=== PATIENT | male | born 1940 | race Caucasian/White ===

== ENCOUNTER 2016-08-10 12:00 | Emergency (ER) | payer MEDICARE, OTHER ==
[2016-08-10 12:19] VITALS: BP 124/58; PULSE 59; O2SAT 95
[2016-08-10] MEDS ORDERED: Adacel Vial IM ONE ×2 (12:51→12:52)
[2016-08-10] MEDS ORDERED: BACIGUENT PACKET TP ONE (12:51)
[2016-08-10] MEDS ORDERED: XYLOCAINE 1% HCL 20 ML MDV IJ ONE (12:51)
[2016-08-10] MEDS ORDERED: BACIGUENT PACKET ONE (12:53)
[2016-08-10] MEDS ORDERED: XYLOCAINE 1% HCL 20 ML MDV ONE (12:54)
--- NOTE | 2016-08-10 12:57 | ERPHSYRPT ---
- History of Present Illness Time Seen by Provider: 08/10/16 12:45 Source: patient Exam Limitations: no limitations Patient Subjective Stated Complaint: pt states he lacerated right 4th digit while cutting caulk. Triage Nursing Assessment: pt pink, warm, dry. unapproximated laceration to right 4th digit. bleeding controlled. radial pulse strong. Occurred: just prior to arrival Method of Injury: incised Quality: constant Severity of Pain-Max: mild Severity of Pain-Current: mild Extremities Pain Location: 4th finger: right Modifying Factors: Improves With: movement Associated Symptoms: none Allergies/Adverse Reactions: Penicillins Allergy (Verified 08/10/16 12:20) Home Medications: Glipizide 5 mg PO DAILY 08/10/16 [History] Lisinopril 5 mg [Zestril 5 MG] 5 mg PO DAILY 08/10/16 [History] Metformin HCl 500 mg [Glucophage 500 MG] 500 mg PO DAILY 08/10/16 [History ] Hx Tetanus, Diphtheria Vaccination/Date Given: Yes (up to date) Hx Influenza Vaccination/Date Given: No Hx Pneumococcal Vaccination/Date Given: No Immunizations Up to Date: Yes - Review of Systems Eyes: No Symptoms Ears, Nose, & Throat: No Symptoms Respiratory: No Symptoms Cardiac: No Symptoms Abdominal/Gastrointestinal: No Symptoms Musculoskeletal: Injury Skin: Other (laceration to right 4th fingerpad) Neurological: No Symptoms Psychological: No Symptoms Endocrine: No Symptoms Hematologic/Lymphatic: No Symptoms Immunological/Allergic: No Symptoms - Past Medical History Pertinent Past Medical History: Yes Cardiac History: Hypertension Endocrine Medical History: Diabetes Type II - Past Surgical History Past Surgical History: Yes Gastrointestinal: Cholecystectomy Other Surgical History: back surgery - Social History Smoking Status: Former smoker Exposure to second hand smoke: No Drug Use: none Patient Lives Alone: No - Nursing Vital Signs Nursing Vital Signs: Initial Vital Signs Temperature 97.8 F Temperature Source Oral Pulse Rate 59 Respiratory Rate 18 Blood Pressure [Left Arm] 124/58 Pain Intensity 0 - Physical Exam General Appearance: no apparent distress Eyes, Ears, Nose, Throat Exam: normal ENT inspection Neck Exam: normal inspection Cardiovascular/Respiratory Exam: chest non-tender Abdominal Exam: non-tender Shoulder Exam: normal inspection, non-tender Elbow/Forearm Exam: normal inspection, non-tender Wrist Exam: normal inspection, non-tender Hand Exam: laceration (2.5 cm length laceration to right 4th fingertip pad) Neuro/Tendon Exam: normal sensation, normal motor functions, normal tendon functions Mental Status Exam: alert, oriented x 3, cooperative Skin Exam: normal color, warm, dry, laceration (as above) SpO2 Interpretation: normal SpO2: 95 Oxygen Delivery: Room Air Procedures - Laceration/Wound Repair Finger Wound Location: Right (4th fingertip pad) Wound Length (cm): 3 Wound's Depth, Shape: superficial Wound Explored: clean Irrigated: No Hibiclens Prep: Yes Anesthesia: digital block, 1% Lidocaine Wound Repaired With: sutures Suture Size/Type: 4-0, ethilon Number of Sutures: 5 Layer Closure?: No Sterile Dressing Applied?: Yes Splint Applied?: No Sling Applied?: No - Course Nursing assessment & vital signs reviewed: Yes - Progress Progress: improved Will see patient in: office Counseled pt/family regarding: diagnosis, need for follow-up (for suture removal 14 days) - Departure Time of Disposition: 13:15 Departure Disposition: Home Clinical Impression: Laceration of finger of left hand without damage to nail Qualifiers: Encounter type: initial encounter Finger: ring finger Foreign body presence: without foreign body Qualified Code(s): S61.215A - Laceration without foreign body of left ring finger without damage to nail, initial encounter Condition: Stable Critical Care Time: No Instructions: Care for a Laceration After Repair, Laceration Repair
== END 2016-08-10 13:30 | disposition home or self-care (01) ==
LOC: ED 12:00
PROC: 0HQFXZZ Repair Right Hand Skin, External Approach (ICD-10-PCS; principal; 2016-08-10)
DX: S61.215A Laceration without foreign body of left ring finger without damage to nail, initial encounter (principal)
CPT/HCPCS: 12002; 90471; 90715; 99284; A9270-GY